=== PATIENT | female | born 1990 | race Caucasian/White ===

== ENCOUNTER 2019-05-18 05:45 | Outpatient (CLI) | payer OTHER, SELFPAY ==
[2019-05-18 06:09] VITALS: BP 120/72; PULSE 90; TEMP 37.1; TEMP 38.3; O2SAT 98
[2019-05-18 06:15] VITALS: BMI 25.4
[2019-05-18 07:16] LABS: Mucous, Urine 0 SEEN /hpf (<or=2+)
[2019-05-18 07:17] VITALS: TEMP 36.8
[2019-05-18 07:18] VITALS: BP 111/75; PULSE 99
[2019-05-18 07:32] LABS: Glucose, Dipstick Normal (Normal); Ketone-Dipstick Negative (Negative); Leukocyte Esterase-Dipstick Negative /ul (Negative); Nitrite-Dipstick Negative (Negative); Occult Blood-Urine 10 /ul (Negative); Protein-Dipstick Negative (Negative); Urine Bilirubin Dipstick Negative (Negative); Urine Urobilinogen Normal (Normal)
[2019-05-18 07:35] LABS: Color, Urine Straw (Yellow); Urine Clarity Clear (Clear)
[2019-05-18 07:39] LABS: Bacteria RARE /hpf (None Seen); Squamous Epithelial Cells - UA 0-5 SEEN /hpf (5-10); White Blood Cells 0-5 SEEN /hpf (0-5)
[2019-05-18] MEDS: Lactated Ringers 1,000 ML 999 ML IV (08:30)
[2019-05-18 09:30] LABS: Absolute Lymphocyte Count 1.44 X10^3/uL (0.83-4.51); Absolute Neutrophil Count 7.4 X10^3/uL (2.0-7.7); Basophil# 0.06 X10^3/uL; Basophil% 0.6 % (0-1); Eosinophil# 0.08 X10^3/uL; Eosinophils% 0.9 % (0-5); Hematocrit 38.9 % (37-47); Hemoglobin 12.6 g/dL (12.0-15.0); Lymphocyte # 1.44 X10^3/ul (4.0); Lymphocyte % 15.3 % (19-41); Mean Corp Hgb Conc 32.4 g/dL (32-36); Mean Corpuscular Hgb 30.1 pg (27.0-32.0); Mean Corpuscular Volume 93.1 fL (81-99); Mean Platelet Vol. 10.1 fl (6.2-12.0); Monocyte# 0.41 X10^3/uL; Monocyte% 4.4 % (0-10); NRBC Flagged by Analyzer 0 % (0-5); Neutrophil # 7.38 X10^3/uL (2.7-7.7); Neutrophil % 78.4 % (47-70); Platelet Count 196 K/mm3 (150-450); RBC Distribution Width CV 13.9 % (11.6-14.6); Red Blood Count 4.18 M/mm3 (4.2-5.4); White Blood Count 9.4 K/mm3 (4.4-11.0)
[2019-05-18 09:38] LABS: ALB/GLOB Ratio 0.9 RATIO (0.9-2.4); AST(SGOT) 17 U/L (15-37); Alanine Aminotransfer ALT/SGPT 20 U/L (13-56); Albumin, Serum 3.2 g/dL (3.2-5.0); Alkaline Phosphatase 73 U/L (45-117); Amylase 96 U/L (25-115); Anion Gap 4 (5-15); BUN 5 mg/dL (7-18); BUN/Creat Ratio 9.3 RATIO (10-20); Calcium,Total 8.7 mg/dL (8.5-10.1); Chloride 110 mmol/L (98-107); Creatinine, Serum 0.54 mg/dL (0.55-1.02); EST Glomerular Filtration Rate 145 mL/min (>60); Est Glom Filt Rate - Afr Amer 175 mL/min (>60); Estimated Creatinine Clearance 142.06 ml/min; Globulin 3.7 g/dL (2.2-4.2); Glucose 80 mg/dL (74-106); Lipase 279 U/L (73-393); Potassium 4.1 mmol/L (3.5-5.1); Protein, Total 6.9 g/dL (6.4-8.2); Sodium Level 139 mmol/L (136-145)
--- NOTE | 2019-05-18 10:36 | OB.TRI.HP_ITS ---
- Problem List (1) Abdominal pain affecting Status: Acute History of Present Illness Date of Service: 05/18/19 Reason For Visit: R/O LABOR Date of Service: 05/18/19 Final ASHLEY: 08/30/19 Gestational age: 25 Weeks and 1 Days History of Present Illness: 28 year old at 25w1d presents for generalized abdominal pain. She has recently moved from [facility] and has not established care here in [place]. She denies any complications with current or past pregnancies. States that upper abdominal pain started 4 days ago, rating pain 5- 6/10. Pain comes and goes, nothing regular. Nothing made it better or worse. Denies any nausea, vomiting, diarrhea, constipation, or other complaints. No vaginal bleeding or leakage of fluid. No contractions or signs of labor. O: Vitals stable, afebrile FHR 145, reactive NST at early gestation No uterine contractions Mom's Microbiology 05/18/19 08:50 Urine, Clean Catch Urine Culture - Pending Mom's Labs & Results 05/18/19 05/18/19 05/18/19 06:50 08:59 08:59 WBC 9.4 RBC 4.18 L Hgb 12.6 Hct 38.9 MCV 93.1 MCH 30.1 MCHC 32.4 RDW Std Deviation 47.0 H RDW Coeff of Mer 13.9 Plt Count 196 MPV 10.1 Immature Gran % (Auto) 0.400 Neut % (Auto) 78.4 H Lymph % (Auto) 15.3 L Amelia % (Auto) 4.4 Eos % (Auto) 0.9 Baso % (Auto) 0.6 Absolute Neuts (auto) 7.4 Absolute Lymphs (auto) 1.44 Nucleated RBC % 0 Sodium 139 Potassium 4.1 Chloride 110 H Carbon Dioxide 25.0 Anion Gap 4 L BUN 5 L Creatinine 0.54 L Estim Creat Clear Calc 142.06 Est GFR (MDRD) Af Amer 175 Est GFR (MDRD) Non-Af 145 BUN/Creatinine Ratio 9.3 L Glucose 80 Calcium 8.7 Total Bilirubin 0.20 AST 17 ALT 20 Alkaline Phosphatase 73 Total Protein 6.9 Albumin 3.2 Globulin 3.7 Albumin/Globulin Ratio 0.9 Amylase 96 Lipase 279 Urine Color Straw Urine Clarity Clear Urine pH 7.0 Ur Specific [place] 1.010 Urine Protein Negative Urine Glucose (UA) Normal Urine Ketones Negative Urine Occult Blood 10 H Urine Nitrite Negative Urine Bilirubin Negative Urine Urobilinogen Normal Ur Leukocyte Esterase Negative Urine RBC Not Reportable Urine WBC 0-5 SEEN Ur Squamous Epith Cells 0-5 SEEN Urine Bacteria RARE Urine Mucus 0 SEEN Allergies amoxicillin Adverse Reaction (Verified 05/18/19 06:16) Rash Penicillins Adverse Reaction (Verified 05/18/19 06:16) Rash Laboratory Studies: Laboratory Tests 05/18/19 05/18/19 05/18/19 Range/Units 08:59 08:59 06:50 WBC 9.4 (4.4-11.0) K/mm3 RBC 4.18 L (4.2-5.4) M/mm3 Hgb 12.6 (12.0-15.0) g/dL Hct 38.9 (37-47) % MCV 93.1 (81-99) fL MCH 30.1 (27.0-32.0) pg MCHC 32.4 (32-36) g/dL RDW Std Deviation 47.0 H (35.1-43.9) fl RDW Coeff of Mer 13.9 (11.6-14.6) % Plt Count 196 (150-450) K/mm3 MPV 10.1 (6.2-12.0) fl Immature Gran % (Auto) 0.400 (0.0-0.9) % Neut % (Auto) 78.4 H (47-70) % Lymph % (Auto) 15.3 L (19-41) % Amelia % (Auto) 4.4 (0-10) % Eos % (Auto) 0.9 (0-5) % Baso % (Auto) 0.6 (0-1) % Absolute Neuts (auto) 7.4 (2.0-7.7) X10^3/uL Absolute Lymphs (auto) 1.44 (0.83-4.51) X10^3/uL Nucleated RBC % 0 (0-5) % Sodium 139 (136-145) mmol/L Potassium 4.1 (3.5-5.1) mmol/L Chloride 110 H (98-107) mmol/L Carbon Dioxide 25.0 (21.0-32.0) mmol/L Anion Gap 4 L (5-15) BUN 5 L (7-18) mg/dL Creatinine 0.54 L (0.55-1.02) mg/dL Estim Creat Clear Calc 142.06 ml/min Est GFR (MDRD) Af Amer 175 (>60) mL/min Est GFR (MDRD) Non-Af 145 (>60) mL/min BUN/Creatinine Ratio 9.3 L (10-20) RATIO Glucose 80 (74-106) mg/dL Calcium 8.7 (8.5-10.1) mg/dL Total Bilirubin 0.20 (0.20-1.00) mg/dL AST 17 (15-37) U/L ALT 20 (13-56) U/L Alkaline Phosphatase 73 (45-117) U/L Total Protein 6.9 (6.4-8.2) g/dL Albumin 3.2 (3.2-5.0) g/dL Globulin 3.7 (2.2-4.2) g/dL Albumin/Globulin Ratio 0.9 (0.9-2.4) RATIO Amylase 96 (25-115) U/L Lipase 279 (73-393) U/L Urine Color Straw (Yellow) Urine Clarity Clear (Clear) Urine pH 7.0 (5.0 - 8.0) Ur Specific [place] 1.010 (1.002-1.030) Urine Protein Negative (Negative) mg/dl Urine Glucose (UA) Normal (Normal) mg/dl Urine Ketones Negative (Negative) mg/dl Urine Occult Blood 10 H (Negative) /ul Urine Nitrite Negative (Negative) Urine Bilirubin Negative (Negative) mg/dL Urine Urobilinogen Normal (Normal) mg/dl Ur Leukocyte Esterase Negative (Negative) /ul Urine RBC Not Reportable Urine WBC 0-5 SEEN (0-5) /hpf Ur Squamous Epith Cells 0-5 SEEN (5-10) /hpf Urine Bacteria RARE (None Seen) /hpf Urine Mucus 0 SEEN (<or=2+) /hpf Review of Systems Constitutional: Denies: Chills, Fever, Weight Change Eyes: Denies: Blurred vision HEENT: Denies: Head Aches, Sinus Congestion, Sinus Drainage Cardiovascular: Denies: Chest Pain, Palpitations Respiratory: Denies: Cough, Shortness of breath at rest, Sputum production Gastrointestinal: Reports: Abdominal Pain. Denies: Nausea, Vomiting Genitourinary: Denies: Dysuria Neurological: Denies: Numbness, Tingling, Focal weakness Psychiatric: Denies: Anxiety, Depression, Homicidal Ideations, Suicidal Ideations Physical Exam Vitals: Vital Signs Temp Pulse BP Pulse Ox 98.2 F 99 111/75 98 05/18/19 07:17 05/18/19 07:18 05/18/19 07:18 05/18/19 06:09 General: Alert, Oriented x3, Cooperative HEENT: Atraumatic, Normocephalic Cardiovascular: Regular rate, Regular Rhythm, No murmurs Lungs: Clear to auscultation, Normal air movement, No rhonchi, No wheeze Abdomen: Bowel Sounds Present, Soft, Gravid - 25 weeks, Tender - Upper left and right quadrant pain. No pain with deep palpation on left side. Tenderness with palpation on right side Extremities:: No edema Neurological: Deep Tendon Reflexes 2+/4 and Symmetrical NST - FHR Rate Baby A Baseline: 145 Variability:: Moderate Accelerations:: 15 x 15 Decelerations:: None NST Reactive:: Yes FHR Category:: Category I Impression/Plan A:Abdominal Pain 25 weeks P: 1) UA negative, urine culture sent. 2) Labs unremarkable 3) 1 liter bolus LR 4) No signs of PTL, reviewed PTL precautions 5) Discussed possible gallbladder origin due to location of discomfort, reviewed BRATY diet, bland foods and avoiding spicy, greasy foods. Discussed if pain does not stop or worsens, will order RUQ abdominal US and referral to general surgery, she agrees with plan. 6) Discussed establishing care with group in the area if she desires to deliver at [facility]. Records requested. She will call and make appointment with local practice today. 7) D/C home
== END 2019-05-18 10:15 | disposition home or self-care (01) ==
LOC: WPOUT 06:01 → WP 06:01
PROVIDERS: Visit Provider Obstetrics & Gynecology
DX: O26.892 Other specified pregnancy related conditions, second trimester (principal); R10.12 Left upper quadrant pain; R10.11 Right upper quadrant pain; Z3A.25 25 weeks gestation of pregnancy
CPT/HCPCS: 96360; 36415; 59025; 59050; 80053; 81001; 82150; 83690; 85025; 87086; 87088; 99218; J7120; G0378

== ENCOUNTER 2019-08-14 18:15 | Outpatient (CLI) | payer OTHER, SELFPAY ==
[2019-08-14 18:25] VITALS: BP 114/73; PULSE 77; TEMP 37.2; O2SAT 100
[2019-08-14 18:30] VITALS: BP 114/73; PULSE 80
[2019-08-14 18:58] VITALS: BMI 26.2
--- NOTE | 2019-08-17 09:02 | OB.TRI.PN ---
Progress Notes Date of Service: 08/14/19 Progress Note: 37w5d presented to labor and delivery for rule out labor.Started having contractions at home. Denies any leakage of fluid or vaginal bleeding. O: FHR 135, moderate, accels TOCO: every 2-3 minutes mild Cervix 2/60/-2 and unchanged A: False Labor P: 1) False labor and ok to d/c home 2) Labor instructions reviewed
== END 2019-08-14 20:15 | disposition home or self-care (01) ==
LOC: WPOUT 18:20 → OBT 18:53
PROVIDERS: Visit Provider Obstetrics & Gynecology
DX: O47.1 False labor at or after 37 completed weeks of gestation (principal); Z3A.37 37 weeks gestation of pregnancy
CPT/HCPCS: 59025; 59050; 99218; G0378

== ENCOUNTER 2019-08-23 07:00 | Inpatient (IN) | payer OTHER, SELFPAY ==
[2019-08-23] VITALS (24 sets, daily range): BP systolic 105–132; BP diastolic 55–88; PULSE 62–113; RESP 18; TEMP 36.4–37.7; O2SAT 98–100; BMI 26.1
[2019-08-23] MEDS: Lactated Ringers 1,000 ML 50 ML IV (07:40)
[2019-08-23] MEDS: Oxytocin 30 units/NS 500 ml 30 UNITS/500 ML IV.SOLN IV (08:00)
[2019-08-23 08:02] LABS: Absolute Lymphocyte Count 1.74 X10^3/uL (0.83-4.51); Absolute Neutrophil Count 6.1 X10^3/uL (2.0-7.7); Basophil# 0.06 X10^3/uL; Basophil% 0.7 % (0-1); Eosinophil# 0.08 X10^3/uL; Eosinophils% 0.9 % (0-5); Hematocrit 39.3 % (37-47); Hemoglobin 13.1 g/dL (12.0-15.0); Lymphocyte # 1.74 X10^3/ul (4.0); Lymphocyte % 20.4 % (19-41); Mean Corp Hgb Conc 33.3 g/dL (32-36); Mean Corpuscular Hgb 30.5 pg (27.0-32.0); Mean Corpuscular Volume 91.6 fL (81-99); Mean Platelet Vol. 10.6 fl (6.2-12.0); Monocyte% 5.8 % (0-10); NRBC Flagged by Analyzer 0 % (0-5); Neutrophil # 6.12 X10^3/uL (2.7-7.7); Neutrophil % 71.6 % (47-70); Platelet Count 177 K/mm3 (150-450); RBC Distribution Width CV 12.5 % (11.6-14.6); RBC Distribution Width SD 41.1 fl (35.1-43.9); Red Blood Count 4.29 M/mm3 (4.2-5.4); White Blood Count 8.6 K/mm3 (4.4-11.0)
[2019-08-23] MEDS: Ondansetron 4 MG/2 ML Vial IV (11:29)
[2019-08-23] MEDS: fentaNYL 100 MCG/2 ML Ampul IV (11:30)
[2019-08-23] MEDS: Oxytocin 30 units/NS 500 ml 30 UNITS/500 ML IV.SOLN 334 UNITS IV (13:04)
--- NOTE | 2019-08-23 13:15 | PCM.OPRPT ---
Vaginal Delivery Maternal Presentation: Elective Induction Method of Induction: Pitocin Amniotic Membrane Rupture Type: Artificial Amniotic Fluid Description: Clear Final ASHLEY: 08/30/19 Final ASHLEY Source: US <20 weeks Gestational age: 39 Weeks and 0 Days Date of Procedure: 08/23/19 Pre-Operative Diagnosis: labor Post-Operative Diagnosis: same Surgery/ Procedure Performed: Spontaneous Vaginal Delivery Type of Anesthesia: None Presentation: LORI Placental Delivery Description: Spontaneous Placenta Disposition: [facility] Cord Vessel Description: 3 Vessels Nuchal Cord Compression: Without compression Cord Entanglement: Around neck x 1, loose, True Knot(s) - x1 Drain: Pino to straight drain Estimated Blood Loss: 300 Infant A gender: Female - Dena (1 minute): 8 (5 minute): 9 Episiotomy Description: None Laceration: None Medications given after delivery: IV Pitocin Complications: None
--- NOTE | 2019-08-23 13:18 | PCM.HP.OB ---
History Date of Admission: 08/30/19 Final ASHLEY: 08/30/19 Final ASHLEY Source: US <20 weeks Gestational age: 39 Weeks and 0 Days History of this : This is a 29 year-old, 6 para 2-0-3-2 presents at 39 weeks for induction of labor for social indications. She denies any vaginal bleeding or leaking of fluid. She is had some irregular contractions. has been uncomplicated to date. They are in the process of moving and her has to leave town frequently and patient would like induction of labor. Allergies amoxicillin Adverse Reaction (Verified 08/23/19 07:35) Rash Penicillins Adverse Reaction (Verified 08/23/19 07:35) Rash Home Medications: Home Medications Fiorinal 50-325-40 mg Capsule 1 tab PO Q4H PRN PRN 05/18/19 Magnesium Oxide 1 tab PO DAILY 05/18/19 Vit,Calc76/Iron/Folic [Pnv 29-1 Tablet] 1 tab PO DAILY 05/18/19 Vitamin D 1 tab PO DAILY 05/18/19 Cephalexin [Keflex] 500 mg PO Q8 08/23/19 Triamcinolone 0.025% Cream 1 applic TOPICAL BID 08/23/19 Smoking Status: Never smoker Substance Use Type: Prescribed, Sleep Aides NST - FHR Rate Baby A Baseline: normal Variability:: Moderate Accelerations:: 15 x 15 Decelerations:: None NST Reactive:: Yes FHR Category:: Category I Uterine Activity:: irreg ctxs History Past Pregnancies: Past Pregnancies Delivery Date Name GA/ Weeks Outcome Route Wt Infant Sex Labor Length Anesthesia Delivery Location Provider FOB Expected Delivery Method: Spontaneous Vaginal Review of Systems Constitutional: Denies: Chills, Fever Eyes: Denies: Blurred vision Cardiovascular: Denies: Chest Pain Respiratory: Denies: Cough Genitourinary: Denies: Dysuria Physical Exam Vitals: Vital Signs Temp Pulse BP Pulse Ox 98.6 F 87 118/80 100 08/23/19 11:30 08/23/19 13:13 08/23/19 13:13 08/23/19 10:17 General: Alert, Cooperative, No apparent distress Cardiovascular: Regular rate Lungs: Normal air movement Abdomen: Soft, Non Tender, Non-Distended, Gravid, Appropriate for Gestational Age Extremities:: Other - edema- trace Neurological: Cranial nerves II-XII grossly intact [employer]: Normal external genitalia Estimated gestational size: Appropriate for gestational size Presentation: Cephalic Assessment/Plan All Active Problems Abdominal pain affecting (Acute) This is a 29 year-old, 6 para 2 at 39 weeks gestation for elective induction of labor. Risk benefits induction of labor have discussed with patient, her questions were answered to her satisfaction she desires to proceed. We will proceed with Pitocin induction of labor. May have epidural if desires. Estimated weight is less than 4500 is clinically and pelvis is clinically adequate to expect vaginal delivery.
[2019-08-23] MEDS: Acetaminophen 500 MG Tablet 1000 MG PO ×2 (15:33→23:25)
[2019-08-23] MEDS: 0.9% Saline Lock 10 ML Syringe IV (15:34)
[2019-08-23] MEDS: Ibuprofen 600 MG Tablet PO (20:29)
[2019-08-24] VITALS (7 sets, daily range): BP systolic 110–122; BP diastolic 59–74; PULSE 60–72; RESP 14–16; TEMP 36.1–36.6
[2019-08-24] MEDS: Ibuprofen 600 MG Tablet PO ×2 (02:27→13:11)
--- NOTE | 2019-08-24 08:29 | PCM.PN.OB ---
Subjective: Doing well per patient and nursing staff. Ambulating and taking PO without difficulty. Voiding and passing flatus. Denies headache, visual changes, chest pain, shortness of breath, increased pain, or leg pain. Pain controlled. Normal lochia. without difficulty. Planning D/C home today. - Physical Exam Vitals/I&O's: Vital Signs Temp Pulse Resp BP Pulse Ox 97 F L 72 16 122/67 H 100 08/24/19 04:50 08/24/19 04:51 08/24/19 04:50 08/24/19 04:51 08/23/19 10:17 Oxygen Delivery Method Room Air Weight: 157 lb Body Mass Index (BMI) 26.1 Intake and Output for Last 24 Hours 08/22/19 08/23/19 08/24/19 23:59 23:59 23:59 Intake Total 795.0 / 795.0 Output Total 800 / 800 Balance -5.0 / -5.0 General: Alert, Oriented x3 HEENT: Atraumatic, Normocephalic Neck: Trachea Midline Lungs: Clear to auscultation, Normal air movement, No rhonchi, No wheeze Cardiovascular: Regular rate, Regular Rhythm, No murmurs Abdomen: Bowel Sounds Present, Soft - appropriately tender. Fundus firm 2 below U Extremities: No edema Psych/Mental Status: Normal Affect, Appropriate Laboratory Results 08/23/19 07:45: Blood Type A POSITIVE, Antibody Screen NEGATIVE 08/23/19 08:15: COVID-19 (SEBAS) Not Detected Current Medications Acetaminophen (Tylenol) 1,000 mg PO Q8H PRN PRN PRN Reason: Pain Score 1-1010 Last Admin: 08/23/19 23:25 Dose: 1,000 mg Documented by: Bisacodyl (Dulcolax) 10 mg RECTAL UD PRN PRN Reason: If no BM Dibucaine (Dibucaine) 1 applic TOPICAL TID PRN PRN; Protocol PRN Reason: Discomfort Hydrocortisone (Hytone) 1 applic TOPICAL TID PRN PRN; Protocol PRN Reason: Discomfort Ibuprofen (Motrin) 600 mg PO Q6H PRN PRN PRN Reason: Pain Score 1-10/10 Last Admin: 08/24/19 02:27 Dose: 600 mg Documented by: Methylergonovine Maleate (Methergine) 0.2 mg IM X1 PRN PRN Reason: Excess bleeding/uterine atony Ondansetron HCl (Zofran) 4 mg IV Q4H PRN PRN PRN Reason: Nausea Senna/Docusate Sodium (Senokot-S, Malathi-Colace) 1 - 2 tablet PO DAILY PRN PRN PRN Reason: Constipation Simethicone (Mylicon) 80 mg PO PCHS PRN PRN Reason: Indigestion/Stomach pain Sodium Chloride () 5 - 15 ml IV UD PRN PRN Reason: SALINE FLUSH Last Admin: 08/23/19 15:34 Dose: 10 ml Documented by: Medical Necessity - Tobacco Use Smoking Status: Never smoker Assessment/Plan All Active Problems Abdominal pain affecting (Acute) A: PPD #1 P: 1) Routine PP and instructions 2) D/C home today 3) Follow up in 2 weeks and 6 weeks
--- NOTE | 2019-08-24 08:41 | DCINST_ITS ---
Discharge Diet: No Restrictions Discharge Activity: Return to Normal Activity, May not drive while taking narcotic pain medications., May Shower May resume sexual activity in: 4-6 weeks Weight Bearing Status: Full weight bearing Additional Activity Instructions:: Nothing in the vagina for 4-6 weeks. You may return to work/school in 6 weeks. Call your doctor if your incision/area has: Continuous Slow Oozing, Sudden Increased Bleeding, Increased Pain/ Swelling, Increased Redness, Foul Smelling Discharge Call your doctor if you observe: Fever of 101 or Higher, Inability to urinate, Inability to have a bowel movement, Using more than one pad per hour, Shortness of breath, Calf discomfort, Uncontrolled pain Additional Instructions: If you experience any of the following, contact your healthcare provider. * Bleeding that soaks a pad every hour for 2 hours * Fever 100.4 or higher * Unrelieved incision or abdominal pain * Swelling, redness, discharge or bleeding from your incision or episiotomy site * Your incision begins to separate * Problems urinating (including inability to urinate or burning while urinating). * Visual changes * Severe headache * Flu-like symptoms * Pain or redness in one of both of your breasts * Pain, warmth, tenderness or swelling in your legs, especially the calf area * Frequent nausea and vomiting * Symptoms of depression or anxiety If you experience any of the following, call 911 or go to the nearest Emergency Room. * Chest pain * Problems breathing * Seizure activity * Partial or complete paralysis of a body part, slurred speech, weakness or drooping of the face, or a sudden inability to walk or hold your balance Allergies/Adverse Reactions: Allergies amoxicillin Adverse Reaction (Verified 08/23/19 07:35) Rash Penicillins Adverse Reaction (Verified 08/23/19 07:35) Rash Medications to take at Discharge Fiorinal 50-325-40 mg Capsule 1 tab PO Q4H PRN PRN 05/18/19 Magnesium Oxide 1 tab PO DAILY 05/18/19 Vit,Calc76/Iron/Folic [Pnv 29-1 Tablet] 1 tab PO DAILY 05/18/19 Vitamin D 1 tab PO DAILY 05/18/19 Triamcinolone 0.025% Cream 1 applic TOPICAL BID 08/23/19 Please Follow Up With: Dena Diamond MD When: Call to make an appointment with your doctor in 6 weeks. If you had elevated Blood Pressure or 4th degree laceration you will need to be seen in 2 weeks. Test Results: Test results from this visit will be discussed in further detail at your follow- up appointment, if applicable.
[2019-08-24] MEDS: Acetaminophen 500 MG Tablet 1000 MG PO (09:45)
== END 2019-08-24 15:45 | disposition home or self-care (01) | DRG 807 ==
PROVIDERS: Admitting Provider Obstetrics & Gynecology; Referring Provider Obstetrics & Gynecology; Visit Provider Obstetrics & Gynecology
DX: O69.81X0 Labor and delivery complicated by cord around neck, without compression, not applicable or unspecified (principal); Z37.0 Single live birth; Z3A.39 39 weeks gestation of pregnancy
CPT/HCPCS: 59025; 59050; 85025; 86850; 86900; 86901; 87635; 99218; G2023; J7120; A4216; G0378; J2405; U0003

== ENCOUNTER → 2024-04-22 | Outpatient (CLI) | payer MEDICAID, SELFPAY ==
--- NOTE | 2024-04-22 07:46 | US_ITS ---
PROCEDURE: ABDOMEN LIMITED (USABDL), 04/22/2024 REASON FOR EXAM: RUQ PAIN COMPARISON: None FINDINGS: Liver: Unremarkable. 14.2 cm in length. Gallbladder: Cholecystectomy. Biliary tree: Unremarkable. CBD measures 4 mm. Pancreas: Partially obscured by shadowing bowel gas, grossly unremarkable as visualized. Right kidney: Unremarkable. 9.7 cm in length. Other: No visualized free fluid. US/Abdomen Limited IMPRESSION: 1. Cholecystectomy without biliary dilatation. If unexplained symptoms persist , consider CT. 2. Additional description as above. Reading Location: [id number]
[2024-04-22 07:56] LABS: Absolute Lymphocyte Count 2.06 X10^3/uL (0.83-4.51); Basophil# 0.08 X10^3/uL; Basophil% 1.4 % (0-1); Eosinophil# 0.13 X10^3/uL; Eosinophils% 2.3 % (0-5); Hematocrit 43.4 % (37-47); Hemoglobin 14.5 g/dL (12.0-15.0); Lymphocyte # 2.06 X10^3/ul (0.83-4.51); Lymphocyte % 36.7 % (19-41); Mean Corp Hgb Conc 33.4 g/dL (32-36); Mean Corpuscular Hgb 28.9 pg (27.0-32.0); Mean Corpuscular Volume 86.5 fL (81-99); Monocyte# 0.38 X10^3/uL; Monocyte% 6.8 % (0-10); NRBC Flagged by Analyzer 0 % (0-5); Neutrophil # 2.95 X10^3/uL (2.7-7.7); Neutrophil % 52.6 % (47-70); Platelet Count 245 K/mm3 (150-450); RBC Distribution Width CV 13.5 % (11.6-14.6); RBC Distribution Width SD 42.6 fl (35.1-43.9); Red Blood Count 5.02 M/mm3 (4.2-5.4); White Blood Count 5.6 K/mm3 (4.4-11.0)
[2024-04-22 08:27] LABS: AST(SGOT) 16 U/L (<=31); Alanine Aminotransfer ALT/SGPT 12 U/L (<=34); Albumin, Serum 4.3 g/dL (3.5-5.0); Alkaline Phosphatase 63 U/L (35-104); Bilirubin, Direct 0.15 mg/dL (0.00-0.30); Globulin 2.6 g/dL (2.2-4.2); Protein, Total 6.9 g/dL (5.9-8.4); Total Bilirubin 0.35 mg/dL (0.00-1.30)
[2024-04-23 11:08] LABS: Immunoglobulin A 197 mg/dL (87-352); t-Transglutaminase IgA <2 U/mL (0-3)
[2024-04-29 16:09] LABS: Beef <0.10 kU/L (Class 0); Chocolate <0.10 kU/L (Class 0); Codfish <0.10 kU/L (Class 0); Corn <0.10 kU/L (Class 0); Egg, Whole <0.10 kU/L (Class 0); Milk (Cow) <0.10 kU/L (Class 0); Mussels <0.10 kU/L (Class 0); Peanut <0.10 kU/L (Class 0); Pork <0.10 kU/L (Class 0); Salmon <0.10 kU/L (Class 0); Shrimp <0.10 kU/L (Class 0); Soybean <0.10 kU/L (Class 0); Tuna <0.10 kU/L (Class 0); Wheat <0.10 kU/L (Class 0)
== END | disposition home or self-care (01) ==
PROVIDERS: Referring Provider Nurse Practitioner Acute Care; Visit Provider Nurse Practitioner Acute Care
DX: R10.11 Right upper quadrant pain (principal); R11.0 Nausea
CPT/HCPCS: 36415; 76705; 80076; 82784; 83516; 85025; 86003; 86005

== ENCOUNTER → 2024-05-24 | Outpatient (CLI) | payer MEDICAID, SELFPAY ==
--- NOTE | 2024-05-24 10:05 | CT_ITS ---
PROCEDURE: ABDOMEN/PELVIS WITH CONTRAST 05/24/2024 REASON FOR EXAM: DIFFUSE ABDOMINAL PAIN TECHNIQUE: Abdomen and pelvis CT with intravenous contrast. Coronal and Sagittal reconstruction series were provided. PATIENT PREPARATION: Per protocol ORAL CONTRAST TYPE: Readi-Cat. AMOUNT: Information not provided. CONTRAST: Isovue 370 VOLUME: 94 mL One or more dose reduction techniques were used (e.g., Automated exposure control, adjustment of the mA and/or kV according to patient size, use of iterative reconstruction technique. RADIATION DOSE SUMMARY: CTDlvol: 19.95+ 9.53 mGy DLP: 512.15 mGycm COMPARISON: Ultrasound 04/22/2024 FINDINGS: Lung bases: Unremarkable. Liver: Ill-defined 1.9 cm enhancing lesion in the far inferior tip of the subcapsular RIGHT lobe. Likely focal steatosis along the anterior falciform, normal variant. Spleen: Unremarkable. Gallbladder: Cholecystectomy. Pancreas: Unremarkable. Adrenals: Unremarkable. Kidneys: Unremarkable. Bowel: Unremarkable. Normal caliber appendix. Lymph nodes: Unremarkable. Vasculature: Retroaortic LEFT renal vein, normal variant. Peritoneum: Trace RIGHT adnexal and dependent pelvic free fluid. Bladder: Underdistended and suboptimally evaluated, grossly unremarkable. Reproductive Organs: Probable small cervical nabothian cyst. 1.4 cm peripherally enhancing RIGHT ovarian likely corpus luteal cyst. Body Wall: Tiny fat containing umbilical hernia.. Bones: Unremarkable. CT/Abdomen/Pelvis WITH Contrast IMPRESSION: 1. No acute findings. 1.4 cm RIGHT ovarian likely corpus luteal cyst which can be a self-limited source of abdominopelvic pain. 2. 1.9 cm indeterminate hepatic lesion which could reflect a hemangioma however this is not definitive, not visualized on recent ultrasound. Recommend either a repeat targeted ultrasound with specific attemp t to visualize this lesion, versus multiphase hepatic protocol CT/MRI with and without contrast. 3. Trace pelvic free fluid, potentially physiologic in this demographic. 4. Additional description as above. Reading Location: [id number]
== END | disposition home or self-care (01) ==
DX: R10.84 Generalized abdominal pain (principal); R10.11 Right upper quadrant pain
CPT/HCPCS: 74177; Q9967; A4216